=== PATIENT | male | born 1985 | race Caucasian/White ===

== ENCOUNTER 2023-05-07 10:39 | Emergency (ER) | payer BC ==
[~2023-05-07] VITALS: Ht 180.3 cm; Wt 136.1 kg
[2023-05-07 10:46] VITALS: BP 138/107
[2023-05-07] MEDS ORDERED: HYDR1TAB94 PO (11:38)
== END 2023-05-07 12:00 | disposition home or self-care (01) ==
LOC: ER 10:39
DX: S93.402A Sprain of unspecified ligament of left ankle, initial encounter (principal); X50.1XXA Overexertion from prolonged static or awkward postures, initial encounter
CPT/HCPCS: 73610; 99283-25